=== PATIENT | female | born 1975 | race Caucasian/White ===

== ENCOUNTER 2023-01-20 11:28 | Inpatient (IN) | payer MEDICAID ==
[~2023-01-20] VITALS: Ht 157.5 cm; Wt 46.5 kg
[~2023-01-20 11:28] MED LIST: IBUP-974 PO
[2023-01-20 11:42] VITALS: BP 125/78
[2023-01-20] MEDS ORDERED: ONDANSETRON 4 MG/2 ML VIAL IVP ONE (12:15)
[2023-01-20] MEDS ORDERED: NACL 0.9% 2,000 ML IV ONE (12:15)
[2023-01-20 13:14] LABS: BASOPHILS % (AUTO) 0.8 % (0.0-2.0); EOSINOPHILS % (AUTO) 0.1 % (0.0-4.0); HEMOGLOBIN 11.5 g/dL (12.0-16.0); LYMPHOCYTES # (AUTO) 0.7 K/uL (2.5-16.5); LYMPHOCYTES % (AUTO) 26.2 % (20.5-51.1); MEAN CORPUSCULAR HEMOGLOBIN 31 pg (27-31); MEAN CORPUSCULAR HGB CONC 33 g/dL (33-37); MEAN CORPUSCULAR VOLUME 93.2 fL (80-94); MONOCYTES # (AUTO) 0.2 K/uL (0.8-1.0); MONOCYTES % (AUTO) 8.6 % (1.7-9.3); NEUTROPHILS # (AUTO) 1.7 K/uL (1.8-7.7); NEUTROPHILS % (AUTO) 64.3 % (42.2-75.2); PLATELET COUNT (AUTO) 187 K/uL (140-450); RED BLOOD CELL COUNT(AUTO) 3.75 MIL/uL (4.20-5.40); WHITE BLOOD COUNT (AUTO) 2.6 K/uL (4.8-10.8)
[2023-01-20 13:29] LABS: ALBUMIN 3.8 g/dL (3.4-5.0); ANION GAP 24.3 (8-16); ASPARTATE AMINOTRANSFERASE 52 U/L (15-37); CHLORIDE 89 mmol/L (98-107); CREATININE 0.8 mg/dL (0.6-1.3); GFR ARICAN-AMERICAN 98 mL/min (>90); LIPASE 48 U/L (73-393); POTASSIUM 4.3 mmol/L (3.5-5.1); SODIUM SERUM 130 mmol/L (136-145); TOTAL BILIRUBIN 0.5 mg/dL (0.0-1.0); UREA NITROGEN, BLOOD 23 mg/dL (7-18)
[2023-01-20 13:29] LABS: APPEARANCE,URINE CLEAR (CLEAR); BILIRUBIN,URINE NEGATIVE (NEGATIVE); BLOOD, URINE NEGATIVE (NEGATIVE); COLOR,URINE YELLOW (YELLOW); LEUKOCYTE ESTERASE ,URINE NEGATIVE (NEGATIVE); NITRITE, URINE NEGATIVE (NEGATIVE); UGLUCOSE 3+ (NEGATIVE)
[2023-01-20 13:37] LABS: GLUCOSE 567 mg/dL (74-106)
[2023-01-20] MEDS ORDERED: NACL 0.45% 1,000 ML IV ONE (13:45)
[2023-01-20] MEDS ORDERED: POTASSIUM CHL 20 MEQ/ 1/2 NS 1,000 ML IV ONE (13:45)
[2023-01-20] MEDS ORDERED: INSULIN REGULAR, HUMAN 100 UNIT in NACL 0.9% 100 ML IV ONE ×2 (13:45)
[2023-01-20 13:55] LABS: RBC,URINE NONE SEEN /HPF (0-5)
[2023-01-20] MEDS ORDERED: ONDANSETRON 4 MG/2 ML VIAL IVP PRN (14:00)
[2023-01-20] MEDS ORDERED: ACETAMINOPHEN 325 MG TAB PO PRN (14:00)
[2023-01-20] MEDS ORDERED: MAG SULF 2000 MG/WATER PREMIX 50 ML IV PRN (14:00)
[2023-01-20] MEDS ORDERED: DEXTROSE 50% 50 ML SYR IVP PRN (14:00)
[2023-01-20] MEDS ORDERED: INSULIN REGULAR, HUMAN 100 UNIT in NACL 0.9% 100 ML IV SCH ×2 (14:00)
[2023-01-20] MEDS ORDERED: POTASSIUM CHLORIDE 10 MEQ TABER PO PRN (14:00)
[2023-01-20] MEDS ORDERED: HYDROcodone/APAP 7.5/325 MG 1 TAB PO PRN (14:00)
[2023-01-20] MEDS ORDERED: NACL 0.9% 1,000 ML IV SCH (14:00)
[2023-01-20] MEDS: BLOOD GLUCOSE MONITORING 1 DEV DEV FS SCH ×10 (14:30→23:16)
[2023-01-20] MEDS ORDERED: humalog (15:24)
[2023-01-20] MEDS ORDERED: HUMALOG (15:38)
[2023-01-20 15:56] LABS: ANION GAP 25.5 (8-16); CARBON DIOXIDE 15.5 mmol/L (21-32); CREATININE 0.7 mg/dL (0.6-1.3)
[2023-01-20 16:00] VITALS: BP 102/60
[2023-01-20 16:00] LABS: MAGNESIUM 1.2 mg/dL (1.8-2.4); PHOSPHORUS 3.8 mg/dL (2.5-4.9)
[2023-01-20 16:11] LABS: CHOL/HDL RATIO 2.4 (1-4.5); FREE T4 (FREE THYROXINE) 0.76 ng/dL (0.76-1.46); THYROID STIMULATING HORMONE 0.98 uIU/mL (0.34-3.74)
--- NOTE | 2023-01-20 16:11 | NUR ---
Received report from ER nurse Donell. Received pt alert and oriented x4. On room air with O2 sat 98%. Sinus rhythm on monitor. NPO at this time. Continent bowel and bladder. Peripheral IV 20 gauge on left upper arm intact and patent infusing insulin drip at 4ml/hr. Peripheral IV 20 gauge left forearm intact and patent infusing 1/2NS with KCl 20mEQ@100m/hr and NS@50ml/hr. Started 1/2 NS@250ml/hr. Oriented pt to room, staff, and environment. Safety precautions in place.
--- NOTE | 2023-01-20 16:26 | NUR ---
Patient will be admitted to care of . Admited to ICU. Will go to room 4. Belongings list completed. Report to nurse stern
--- NOTE | 2023-01-20 17:15 | NUR ---
Received phone call from ER nurse that Dr. Rivera wanted to increase insulin drip @8ml/hr. Confirmed with Dr. Rivera. Order noted and carried out.
--- NOTE | 2023-01-20 17:18 | NUR ---
PATIENT HAS BEEN SCREENED AND CATEGORIZED HIGH NUTRITION RISK. PATIENT WILL BE SEEN WITHIN 1-2 DAYS OF ADMISSION. PT WITH BMI < 18.5 KG/M2. [facility] REFERRAL FOR "2-13 LB WEIGHT LOSS" RECEIVED ON 01/20/23. REVIEWED BY HARVEY QUINTANA RD
[2023-01-20 18:00] VITALS: BP 95/58
--- NOTE | 2023-01-20 19:15 | NUR ---
Received report BASSAM Garcia WELDING TESTER. Patient on Insulin gtts @ 0.05units, 1/2 NS + 20meq KCL @ 100ml/hr X1L, D5 1/2NS @150ml/hr on FACUNDO G20 & LFA G20, uses bedpan, Accucheck q1h.
--- NOTE | 2023-01-20 19:25 | NUR ---
Endorsed to film processing shift supervisor nurse Keli for continuity of care.
[2023-01-20 20:00] VITALS: BP 115/62
[2023-01-20] MEDS ORDERED: DOCUSATE SODIUM 100 MG GELCAP PO SCH (21:00)
--- NOTE | 2023-01-20 21:30 | NUR ---
Send Urine for Drug Screening. Left in Laboratory & signed in.
[2023-01-20 22:00] VITALS: BP 107/69
[2023-01-21] VITALS: BP 101/66
[2023-01-21] MEDS: BLOOD GLUCOSE MONITORING 1 DEV DEV FS SCH ×8 (00:04→07:49)
--- NOTE | 2023-01-21 00:10 | NUR ---
Patient refuses Blood Draw ( even Blood drawn from the Peripheral Line) she Covered her Lt Arm with her hand. Tried to convince her & explain to her the Necessity of the Result. But she insisted on her Decision.
--- NOTE | 2023-01-21 01:20 | NUR ---
Texted Dr. Starks to let him know patient wants to go AMA & refuse All Blood Draw. Still on q1h Accucheck & Insulin gtts. said OK to go if she insisted.
[2023-01-21 02:00] VITALS: BP 98/64
[2023-01-21 04:00] VITALS: BP 95/67
--- NOTE | 2023-01-21 04:00 | NUR ---
Ray came to Draw Blood, Patient Firmly Refuse again. Offered to Draw it from the Peripheral line But still Refuse.
[2023-01-21 06:00] VITALS: BP 94/47
--- NOTE | 2023-01-21 07:23 | NUR ---
Report given to BASSAM Jain SENIOR CYBER INTELLIGENCE ANALYST. All questions answered.
--- NOTE | 2023-01-21 07:38 | NUR ---
Received pt alert and oriented x4. On room air breathing even and unlabored. Sinus mali on monitor. NPO at this time. Continent bowel and bladder. Peripheral IV on left upper arm intact and patent infusing insulin drip@0.05mcg/kg/hr. Peripheral IV left forearm intact and patent infusing D5 1/2 NS@200ml/hr. Safety precautions in place.
--- NOTE | 2023-01-21 08:00 | NUR ---
Lab to draw blood, but pt refuses and states she wants to go home. Risks explained. However pt refuses and states that it is her health and she will take responsibility and that she just wants to go home. [id number]: Called responsible democrat Sindi Monsalve (daughter) and explained the risks and benefits of her staying at the hospital and blood draw.
--- NOTE | 2023-01-21 08:20 | NUR ---
Used [employer] spanish interpreter and spoke with Bisi. #[id number]. Explained risks and benefits of labs, treatment, and hospitalization. Per spanish interpreter Bisi, pt states that she will take responsibility for leaving against medical advice and that she just wants to go home and does not care what we say. Pt signed AMA paper.
--- NOTE | 2023-01-21 08:35 | NUR ---
IV removed on left upper arm and left forearm. Pressure applied. Pt tolerated well. Walked pt to front lobby.
[2023-01-21] MEDS ORDERED: PANTOPRAZOLE 40 MG INJ VIAL IVP SCH (09:00)
== END 2023-01-21 08:35 | disposition left against medical advice (07) | DRG 420 ==
LOC: MED 11:28 → MIC 14:03
DX: E11.10 Type 2 diabetes mellitus with ketoacidosis without coma (principal); E87.8 Other disorders of electrolyte and fluid balance, not elsewhere classified; E87.1 Hypo-osmolality and hyponatremia; D64.9 Anemia, unspecified; D72.819 Decreased white blood cell count, unspecified; Z20.822 Contact with and (suspected) exposure to COVID-19
CPT/HCPCS: 36415; 71045; 80048; 80053; 81001; 82140; 82150; 82803; 82948; 83036; 83605; 83690; 83735; 83880; 84100; 84439; 84443; 84484; 85025; 85610; 85730; 87040; 87081; 87086; 93005; 96365; 99285; J1644; J1815; J2405; J3475; J3480; Q0092